=== PATIENT | female | born 1985 | race American Indian/Alaskan Native ===

== ENCOUNTER 2020-08-24 12:48 | Emergency (ER) | payer SELFPAY ==
--- NOTE | 2020-08-24 13:03 | Emergency Department Report ---
Blank Doc - Documentation Documentation: 34-year-old female that presents with chest pain and SOB. This initial assessment/diagnostic orders/clinical plan/treatment(s) is/are subject to change based on patient's health status, clinical progression and re- assessment by fellow clinical providers in the ED. Further treatment and workup at subsequent clinical providers discretion. Patient/guardians urged not to elope from the ED as their condition may be serious if not clinically assessed and managed. Initial orders include: 1- Patient sent to [facility] for further evaluation and treatment 2- cardiac workup
[2020-08-24 13:46] LABS: Basophils # (Auto) 0.1 K/mm3 (0.0-0.1); Basophils % (Auto) 1.5 % (0.0-1.8); Eosinophils # (Auto) 0.1 K/mm3 (0.0-0.4); Hematocrit 30.6 % (30.3-42.9); Hemoglobin 10.1 gm/dl (10.1-14.3); Lymphocytes # (Auto) 1.6 K/mm3 (1.2-5.4); Lymphocytes % (Auto) 27.5 % (13.4-35.0); Mean Corpuscular HGB Conc 33 % (30-34); Mean Corpuscular Volume 87 fl (79-97); Monocytes # (Auto) 0.7 K/mm3 (0.0-0.8); Monocytes % (Auto) 11.8 % (0.0-7.3); Platelet Count 235 K/mm3 (140-440); Red Blood Count 3.52 M/mm3 (3.65-5.03); Red Cell Distribution Width 16.1 % (13.2-15.2)
[2020-08-24 13:57] LABS: INR 1.33 (0.87-1.13)
[2020-08-24 13:58] LABS: Partial Thromboplastin Time 31.4 Sec. (24.2-36.6)
--- NOTE | 2020-08-24 14:35 | Emergency Department Report ---
ED General Adult HPI - General Chief complaint: Chest Pain Stated complaint: CHEST PAIN/DIZZY/SANDY Time Seen by Provider: 08/24/20 13:00 Source: patient Mode of arrival: Ambulatory Limitations: No Limitations - History of Present Illness Initial comments: The patient was evaluated in the emergency department for symptoms described in the history of present illness. He/she was evaluated in the context of the global COVID-19 pandemic, which necessitated consideration that the patient might be at risk for infection with the virus that causes COVID-19. Institutional protocols and algorithms that pertain to the evaluation of patients at risk for COVID-19 are in a state of rapid change based on information released by regulatory bodies including the CDC and federal and state organizations. These policies and algorithms were followed during the pat ient's care in the emergency department. Please note that these policies, procedures and recommendations changed on a rapid basis. 34-year-old -[place] female comes into the ER complaining of chest pain with shortness of breath dizziness and headache. Patient states that this has been going on for 2 days. Patient reports that chest pain started today with dizziness. Patient reports she used her inhaler today which did not help. She admits to nausea diarrhea nasal congestion is what is causing her trouble breathing. She has taken nothing for her pain. Patient states the chest pain is worse with lying down or moving better with nothing. No history of chest pain in the past. Her last menstrual period was July 24, 2020. Not sure if she could be . She does have a history of GERD and has not taken any medications. 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 Denies any Covid contact and last tested negative for Covid in May. She has an allergy to ibuprofen and contrast dye. Onset/Timin -: days(s) Location: head, chest Radiation: non-radiation Severity scale (0 -10): 10 Improves with: none Worsens with: other (Lying down) - Related Data Allergies Allergy/AdvReac Type Severity Reaction Status Date / Time ibuprofen [From Motrin] Allergy Swelling Verified 08/24/20 12:59 CONTRAST DYE Allergy Swelling Uncoded 08/24/20 13:00 ED Review of Systems ROS: Stated complaint: CHEST PAIN/DIZZY/SANDY Other details as noted in HPI ED Past Medical Hx - Past Medical History Previous Medical History?: No - Surgical History Past Surgical History?: No ED Physical Exam - General Limitations: No Limitations General appearance: alert, in no apparent distress - Head Head exam: Present: atraumatic, normocephalic - Eye Eye exam: Present: normal appearance - ENT ENT exam: Present: mucous membranes moist - Neck Neck exam: Present: normal inspection - Respiratory Respiratory exam: Present: normal lung sounds bilaterally. Absent: respiratory distress - Cardiovascular Cardiovascular Exam: Present: regular rate, normal rhythm. Absent: systolic murmur, diastolic murmur, rubs, gallop - GI/Abdominal GI/Abdominal exam: Present: soft, normal bowel sounds - Extremities Exam Extremities exam: Present: normal inspection - Back Exam Back exam: Present: normal inspection - Neurological Exam Neurological exam: Present: alert, oriented X3 - Psychiatric Psychiatric exam: Present: normal affect, normal mood - Skin Skin exam: Present: warm, dry, intact, normal color. Absent: rash ED Course Vital Signs 08/24/20 08/24/20 13:10 17:57 Temperature 98.2 F Pulse Rate 96 H 74 Respiratory 18 16 Rate Blood Pressure 122/74 [Right] O2 Sat by Pulse 97 100 Oximetry ED Medical Decision Making - Lab Data Result diagrams: 08/24/20 13:37 08/24/20 13:37 - EKG Data EKG shows normal: sinus rhythm Rate: normal - EKG Data Interpretation: normal EKG - Radiology Data Radiology results: report reviewed Ordering Physician: PORTILLO MOE NP Date of Service: 08/24/20 Procedure(s): XR chest routine 2V Accession Number(s): [id number] cc: PORTILLO MOE NP Fluoro Time In Minutes: CHEST 2 VIEWS INDICATION / CLINICAL INFORMATION: Chest Pain. COMPARISON: None available. FINDINGS: SUPPORT DEVICES: None. HEART / MEDIASTINUM: No significant abnormality. LUNGS / PLEURA: No significant pulmonary or pleural abnormality. No pneumothorax. ADDITIONAL FINDINGS: No significant additional findings. IMPRESSION: 1. No acute findings. Signer Name: Tho Bueno MD Signed: 08/24/2020 2:39 PM Workstation Name: [id number] Transcribed By: DARYA Dictated By: Tho Bueno MD Electronically Authenticated By: Tho Bueno MD Signed Date/Time: 08/24/201438 DD/ 38 TD/TT: - Medical Decision Making 34-year-old -[place] female comes into the ER complaining of chest pain with shortness of breath dizziness and headache. Patient states that this has been going on for 2 days. Patient reports that chest pain started today with dizziness. Patient reports she used her inhaler today which did not help. She admits to nausea diarrhea nasal congestion is what is causing her trouble breathing. She has taken nothing for her pain. Patient states the chest pain is worse with lying down or moving better with nothing. No history of chest gorge n in the past. Her last menstrual period was July 24, 2020. Not sure if she could be . She does have a history of GERD and has not taken any medications. 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 Denies any Covid contact and last tested negative for Covid in May. She has an allergy to ibuprofen and contrast dye. Cardiac work-up initiated in triage. Chest x-ray is negative elevation of her glucose to 174 - troponin at this time. EKG is normal. Negative test. Pain medication was offered patient declined. Critical care attestation.: If time is entered above; I have spent that time in minutes in the direct care of this critically ill patient, excluding procedure time. ED Disposition Clinical Impression: Atypical chest pain, Anxiety Disposition: DC-01 TO HOME OR SELFCARE Is pt being admited?: No Does the pt Need Aspirin: No Condition: Stable Instructions: Chest Pain (ED) Additional Instructions: EKG within normal limits labs are stable. I recommend taking Tylenol for your headache and pain. I recommend taking [id number] Pepcid for your chest discomfort this is most likely due to your acid reflux. Follow-up with your primary care provider. Referrals: Yuriy Felix [Other] - 3-5 Days Forms: Work/School Release Form(ED)
[2020-08-24 14:41] LABS: Alanine Aminotransferase 13 units/L (7-56); Albumin 3.7 g/dL (3.9-5); BUN/Creatinine Ratio 12; Blood Urea Nitrogen 11 mg/dL (7-17); Calcium 8.8 mg/dL (8.4-10.2); Hemolysis Index 2
--- NOTE | 2020-08-24 14:43 | XRay Report ---
CHEST 2 VIEWS INDICATION / CLINICAL INFORMATION: Chest Pain. COMPARISON: None available. FINDINGS: SUPPORT DEVICES: None. HEART / MEDIASTINUM: No significant abnormality. LUNGS / PLEURA: No significant pulmonary or pleural abnormality. No pneumothorax. ADDITIONAL FINDINGS: No significant additional findings. IMPRESSION: 1. No acute findings. Signer Name: Tho Bueno MD Signed: 08/24/2020 2:39 PM Workstation Name: [id number]
[2020-08-24] MEDS ORDERED: SODIUM CHLORIDE 0.9% 1000 ML 1,000 ML IV ONE (15:39)
[2020-08-24 16:23] LABS: Bacteria,Urine 1+ /HPF (Negative); Bilirubin,Urine NEG (Negative); Blood,Urine NEG (Negative); Color,Urine Yellow (Yellow); Mucus,Urine 3+ /HPF; Urobilinogen,Urine < 2.0 mg/dL (<2.0)
[2020-08-24 18:20] VITALS: BP 111/88
== END 2020-08-24 18:20 | disposition home or self-care (01) ==
LOC: ED 12:48
DX: F41.9 Anxiety disorder, unspecified (principal); R07.89 Other chest pain; Z79.899 Other long term (current) drug therapy; Z88.6 Allergy status to analgesic agent; Z91.041 Radiographic dye allergy status
CPT/HCPCS: 36415; 71046; 80053; 81001; 84484; 84703; 85025; 85379; 85610; 85730; 93005; 96360; 96361; 99284; J7030